=== PATIENT | female | born 1970 | race Caucasian/White ===

== ENCOUNTER 2018-10-13 08:18 | Day surgery (SDC) | payer BC ==
[~2018-10-13 08:18] MED LIST: CELECOXIB 100 MG CAPSULE PO ONE; FAMOTIDINE 20MG TABLET PO ONE; MECLIZINE 25 MG TABLET PO ONE; METOCLOPRAMIDE 10 MG TABLET PO ONE; SCOPOLAMINE 1 PATCH TDSY TD ONE; VANCOMYCIN 1GM/200ML PREMIX 1 GM/200 ML PIGGYBACK IVPB ONE
[2018-10-13] MEDS ORDERED: ROPIVACAINE HCL (NAROPIN) /PF 5MG/ML 20ML VIAL IV ONE (08:19)
[2018-10-13] MEDS ORDERED: 0.9 % SODIUM CHLORIDE 10 ML VIAL IVP ONE (08:19)
[2018-10-13] MEDS ORDERED: KETAMINE HCL 100MG/1ML VIAL INJ ONE (08:19)
[2018-10-13] MEDS ORDERED: FENTANYL PF 100MCG/2ML VIAL IV ONE (08:19)
[2018-10-13] MEDS ORDERED: MIDAZOLAM HCL 2MG/2ML VIAL IV ONE (08:19)
[2018-10-13] MEDS ORDERED: LIDOCAINE 2% MDV (20MG/ML) 20ML VIAL IV ONE (08:19)
[2018-10-13] MEDS ORDERED: ESMOLOL HCL 100 MG/10 ML ML IVP ONE (08:19)
[2018-10-13] MEDS ORDERED: LABETALOL HCL 5MG/ML, 20ML VIAL IV ONE (08:19)
[2018-10-13] MEDS ORDERED: DEXAMETHASONE 4 MG/ML 1ML VIAL IVP ONE (08:19)
[2018-10-13] MEDS ORDERED: HYDROMORPHONE HCL 2 MG/ML VIAL IV ONE (08:19)
[2018-10-13] MEDS ORDERED: PROPOFOL 10 MG/ML VIAL IV ONE (08:19)
[2018-10-13] MEDS ORDERED: TRANEXAMIC ACID 1,000 MG/10 ML ML IV ONE (08:19)
[2018-10-13] MEDS ORDERED: RINGERS SOLUTION,LACTATED 1,000 ML IV ONE ×2 (09:00→12:30)
[2018-10-13 10:05] LABS: ABO GROUP O; ANTIBODY SCREEN NEGATIVE (NEGATIVE); RH TYPE POSITIVE
[2018-10-13] MEDS ORDERED: BUPIVACAINE 0.5% W/EPI MPF 30 ML VIAL SQ ONE (11:35)
[2018-10-13] MEDS ORDERED: BISACODYL 10 MG SUPP RC PRN (12:38)
[2018-10-13] MEDS ORDERED: ONDANSETRON HCL IV 4 MG/2 ML VIAL IVP PRN (12:38)
[2018-10-13] MEDS ORDERED: AL HYDROX/MAG HYDROX 30ML UD PO PRN (12:38)
[2018-10-13] MEDS ORDERED: MAGNESIUM HYDROXIDE 30 ML UDC PO PRN (12:38)
[2018-10-13] MEDS ORDERED: HYDROCODONE/APAP 10/325 TABLET PO PRN (12:38)
[2018-10-13] MEDS ORDERED: ACETAMINOPHEN 325 MG TAB PO PRN (12:38)
[2018-10-13] MEDS ORDERED: ZOLPIDEM TARTRATE 5 MG TABLET PO PRN (12:38)
[2018-10-13] MEDS ORDERED: ACETAMINOPHEN W/ CODEINE 300MG/60MG TABLET PO PRN ×2 (12:38)
[2018-10-13] MEDS ORDERED: NALOXONE 0.4 MG/1 ML VIAL IVP PRN (12:38)
[2018-10-13] MEDS ORDERED: KETOROLAC 30 MG/ML VIAL IVP PRN ×2 (12:38)
[2018-10-13] MEDS ORDERED: DIPHENHYDRAMINE HCL 25 MG CAPSULE PO PRN (12:38)
[2018-10-13] MEDS ORDERED: HYDROMORPHONE HCL 2 MG/ML VIAL IM PRN (12:38)
[2018-10-13] MEDS ORDERED: TRAMADOL HCL 50 MG TABLET PO PRN (12:38)
[2018-10-13] MEDS ORDERED: KETOROLAC 30 MG/ML VIAL IVP ONE (13:11)
[2018-10-13] MEDS ORDERED: FUROSEMIDE 20 MG TABLET PO PRN (15:02)
[2018-10-13] MEDS ORDERED: POTASSIUM CHLORIDE 20 MEQ TABLET PO PRN (15:03)
--- NOTE | 2018-10-13 15:11 | Rehab Evaluation ---
Patient Information - Patient Information Diagnosis: OA L knee Ordered Treatment: OT Evaluate and Treat Status: Initial Evaluation Surgery: Yes (L TKA) Date of Surgery: 10/13/18 Past Medical/Surgical Hx: PAST MEDICAL/SURGICAL HISTORY Past Surgical History TEAR DUCT RECONSTUCTION LITHOTRIPSY BILAT RTC REPAIR FACSIOTOMY BILAT FEET C SECTION WITH TUBAL LIGATION 2007 BILAT CTR PMH - Respiratory Hx Respiratory Disorders Yes Hx Bronchitis Yes: 2 YRS AGO Hx Pneumonia Yes: 2 YRS AGO Hx Sleep Apnea Yes Hx of CPAP Yes PMH - Cardiovascular Hx Cardiovascular Disorders Yes Hx Abnormal EKG Yes Hx Edema Yes: KNEES AND ANKLES Hx Irregular Heartbeat Yes: A FIB SHORT LIVED CONVERTED ON ITS OWN 10 YRS AGO Exercise Tolerance Poor PMH - Neuro Hx Neurological Disorders No PMH - GI Hx Gastrointestinal Disorders Yes Hx Gastroesophageal Reflux Yes: ON MEDS WITH CONTROL PMH - Hx Genitourinary Disorders Yes Hx Age of Menopause 40 Hx Kidney Stones Yes: HX OF Comment: S/P TUBAL LIGATION PMH - Endocrine Hx Endocrine Disorders No PMH - Musculoskeletal Hx Musculoskeletal Disorders Yes Hx Arthritis Yes: KNEES AND SPINE PMH - Psych Hx Psychiatric Problems Yes Hx Anxiety Yes: OCC SITUATIONAL PMH - Hematology/Oncology Hx Hematology/Oncology No Disorders Premorbid Status: Detail (Prior to admit, Pt was independent with all ADLs and functional mobility. She lives with her significant other in a 2-story home, but plans to stay on the main floor at [place]. There are 3 steps to enter without a hand-rail. The bathroom is equipped with a tub/shower and no grab bars or shower chair - Pt reports her significant other will get a shower chair. She has a FWW.) Precautions: [place], Fall, Other (FWB) - Time With Patient Total Time Spent With Patient (Min): 20 (1 eval) Treatment Procedures: Detail (OT eval: low complexity) Subjective Information - Subjective Information Per Patient (Ok to see per STEPHAN Joshua. Pt agreeable to OT eval.) Objective Data - Pain Pain Present: Yes Pain Scale Used: Numeric (1 - 10) (4/10) - Mental Status Patient Orientation: Oriented x3 - Visual Perception Appears within normal limits for therapeutic activities - ROM Within normal limits (B UEs.) - Strength/Tone Other (Pt fatigued this date, will assess UE strength tmrw.) - Coordination Appears within normal limits for therapeutic activities - Bed Mobility Needs Assist (Supine to/from EOB with MAX assist of 2 and heavy use of overhead trapeze.) - Transfers Needs Assist (MOD assist of 2 for sit to/from stand at EOB at FWW. Pt quickly becomes lightheaded while standing and requires seated rest, declines further mobility. SpO2 >97% throughout.) - Balance Balance Sitting: Fair Balance Standing: Fair, Poor (Fair- with walker) - Sensation Intact - Gait Detail (Not appropriate at this time.) - ADL's/IADL's Detail (Pt too fatigued, lightheaded this date to attempt ADLs or fxl mobility, however applies cold washcloth to face with setup assist.) Therapy Assessment - Therapy Assessment Detail (Pt limited by fatigue and lightheadedness s/p L TKA. Would benefit from further IP OT to ensure safety and fxl independence prior to return home with spouse.) Patient Education - Patient Education Teaching Topic: Exercise/Activity Response: Return Demonstration, Reinforcement Needed Teaching Method: Discussion, Demonstration Teaching Recipient: Patient Barriers To Learning: Other (Fatigue) Problem List - Problem List Occupational Therapy Problem List: Detail (1. Decreased independence with LB dressing. 2. Decreased independence and tolerance for fxl mobility and TFs. 3. Decreased knowledge of home safety.) Goals - Goals Occupational Therapy Goals: 1. Pt will be MOD I with AE as needed for LB dressing. 2. Pt will be MOD I with use of FWW for toilet and tub/shower TFs. 3. Pt will verbalize knowledge of home safety. Prognosis - Prognosis Good Plan - Plan Occupational Therapy Plan: 1-2 visits to ensure safety and independence prior to return home with significant other.
--- NOTE | 2018-10-13 16:03 | Rehab Evaluation ---
Patient Information - Patient Information Diagnosis: OA L knee Ordered Treatment: PT Evaluate and Treat Status: Initial Evaluation Surgery: Yes (L TKA) Date of Surgery: 10/13/18 Past Medical/Surgical Hx: PAST MEDICAL/SURGICAL HISTORY Past Surgical History TEAR DUCT RECONSTUCTION LITHOTRIPSY BILAT RTC REPAIR FACSIOTOMY BILAT FEET C SECTION WITH TUBAL LIGATION 2007 BILAT CTR PMH - Respiratory Hx Respiratory Disorders Yes Hx Bronchitis Yes: 2 YRS AGO Hx Pneumonia Yes: 2 YRS AGO Hx Sleep Apnea Yes Hx of CPAP Yes PMH - Cardiovascular Hx Cardiovascular Disorders Yes Hx Abnormal EKG Yes Hx Edema Yes: KNEES AND ANKLES Hx Irregular Heartbeat Yes: A FIB SHORT LIVED CONVERTED ON ITS OWN 10 YRS AGO Exercise Tolerance Poor PMH - Neuro Hx Neurological Disorders No PMH - GI Hx Gastrointestinal Disorders Yes Hx Gastroesophageal Reflux Yes: ON MEDS WITH CONTROL PMH - Hx Genitourinary Disorders Yes Hx Age of Menopause 40 Hx Kidney Stones Yes: HX OF Comment: S/P TUBAL LIGATION PMH - Endocrine Hx Endocrine Disorders No PMH - Musculoskeletal Hx Musculoskeletal Disorders Yes Hx Arthritis Yes: KNEES AND SPINE PMH - Psych Hx Psychiatric Problems Yes Hx Anxiety Yes: OCC SITUATIONAL PMH - Hematology/Oncology Hx Hematology/Oncology No Disorders Premorbid Status: Detail (Prior to admit, Pt was independent with all ADLs and functional mobility. She lives with her significant other in a 2-story home, but plans to stay on the main floor at [place]. There are 3 steps to enter without a hand-rail. The bathroom is equipped with a tub/shower and no grab bars or shower chair - Pt reports her significant other will get a shower chair. She has a FWW.) Precautions: [place], Fall, Other (FWB) - Time With Patient Total Time Spent With Patient (Min): 30 Treatment Procedures: Detail (Patient seen bedside and having a hard time staying awake. Had to keep waking her up to get a history and then worked on knee ROM to loosen up knee before tried to sit up edge of bed. Patient had quite a bit of pain with ROM and knee very stiff yet. Supine to sit using trapeze and max assist of two to get to edge of bed then sat for several minutes to clear head. Became very dizzy with trying to stand with FWW with max assist of two so sat right back down. Sat again to clear head then max assist into bed. Able to scoot up in bed though with light assist. Left patient with O2 monitor( she's been having issues with O2 sats dropping) on ear and call light close, tray table close.) Subjective Information - Subjective Information Per Patient (Patient's having some issues with waking up since surgery and O2 s ats keep dropping per nurse but nurse felt we should try to get her moving. Patient willing. Says pain about 4/10.) Objective Data - Pain Pain Present: Yes Pain Scale Used: Numeric (1 - 10) (4/10) - Mental Status Patient Orientation: Oriented x3 - Visual Perception Appears within normal limits for therapeutic activities - ROM Within normal limits (except left knee 0 degrees extension to 45 degrees flexion) - Strength/Tone Within normal limits (except left knee 3-/5 hamstrings, quads 3/5, hip flexors 3-/5 also.) - Coordination Deficit (Patient having some difficulty waking up and not really coordinating issues with knee yet.) - Bed Mobility Needs Assist (Needs assist to do exercises and move supine to sit to stand, was able to push up in bed with min assist.) - Transfers Needs Assist (As mentioned above.) - Balance Balance Sitting: Good Balance Standing: Fair - Sensation Deficit (Numbness in leg yet: left knee) - Gait Detail (Not able to walk today- only able to stand and did not do well.) - Special Tests No Therapy Assessment - Therapy Assessment Detail (Patient having some issues with O2 sats and waking from surgery. Not able to do very much today.) Patient Education - Patient Education Teaching Topic: Equipment Use, Exercise/Activity Response: Return Demonstration Teaching Method: Discussion, Demonstration Teaching Recipient: Patient Barriers To Learning: None Problem List - Problem List Physical Therapy Problem List: Detail (1. Decreased mobility yet 2. Decreased functional gait yet. 3. Have not tried stairs so will need to do that before discharge) Goals - Goals Physical Therapy Goals: Patient will be more functional with mobility and be able to walk with FWW at least 50 feet. Patient will be safe ambulating on stairs to be able to get into house. Prognosis - Prognosis Good (Should do better in am and be ready to progress so can go home.) Plan - Plan Physical Therapy Plan: Continue PT tomorrow am for exercises, gait and stairs so can go home tomorrow. May need to be seen in pm if cannot do stairs in am.
[2018-10-13] MEDS: POTASSIUM CHLORIDE/D5-0.9%NACL 20 MEQ/1,000 ML BAG IV SCH (17:56)
[2018-10-13] MEDS: HYDROCODONE/APAP 10/325 TABLET PO PRN (20:13)
[2018-10-13] MEDS: DOCUSATE SODIUM 100 MG CAPSULE PO SCH (21:26)
[2018-10-13] MEDS: VANCOMYCIN 1GM/200ML PREMIX 1 GM/200 ML PIGGYBACK IVPB SCH (21:28)
[2018-10-13] MEDS ORDERED: PANTOPRAZOLE SODIUM 40 MG TABLET PO SCH (22:00)
[2018-10-14] MEDS: POTASSIUM CHLORIDE/D5-0.9%NACL 20 MEQ/1,000 ML BAG IV SCH ×3 (02:33→15:46)
[2018-10-14 07:00] LABS: HEMATOCRIT 35.3 % (35.0-47.0); HEMOGLOBIN 10.8 gm/dl (11.6-16.0)
[2018-10-14 07:17] LABS: BLOOD UREA NITROGEN 6 mg/dL (6-20); CREATININE 0.6 mg/dL (0.5-0.9); EST GLOMERULAR FILTRATION RATE > 60 mL/min; GLUCOSE,RANDOM 140 mg/dL (74-109)
[2018-10-14] MEDS: HYDROCODONE/APAP 10/325 TABLET PO PRN ×3 (07:20→15:49)
[2018-10-14] MEDS ORDERED: RIVAROXABAN 10 MG TABLET PO SCH (10:00)
[2018-10-14] MEDS ORDERED: FERROUS SULFATE 325 MG TAB PO SCH (10:00)
[2018-10-14] MEDS: DOCUSATE SODIUM 100 MG CAPSULE PO SCH (10:30)
[2018-10-14] MEDS: VANCOMYCIN 1GM/200ML PREMIX 1 GM/200 ML PIGGYBACK IVPB SCH (10:31)
[2018-10-14 10:39] LABS: URINE APPEARANCE CLEAR; URINE BILIRUBIN NEGATIVE (NEGATIVE); URINE BLOOD MODERATE (NEGATIVE); URINE COLOR YELLOW; URINE GLUCOSE (UA) NEGATIVE (NEGATIVE); URINE KETONE NEGATIVE (NEGATIVE); URINE LEUKOCYTE ESTERASE NEGATIVE (NEGATIVE); URINE NITRITE NEGATIVE (NEGATIVE); URINE PROTEIN NEGATIVE (NEGATIVE); URINE UROBILINOGEN 0.2 E.U./dL (0.20 - 1.00)
[2018-10-14 11:00] LABS: URINE BACTERIA FEW; URINE WBC 0 - 2 (0-2/hpf)
--- NOTE | 2018-10-14 11:14 | Occupational Therapy Tx Note ---
Occupational Therapy Tx Note - Treatment Note Tolerated: Good Total Time Spent With Patient: 27 (1 ADL) Occupational Therapy Treatment Note: Detail (S: Pt supine upon therapist arrival, no longer on O2, reports 4/10 pain at rest but not due yet for pain meds, also feels she may be passing a kidney stone. O: Supine to EOB with MIN assist as Pt unable to lift L leg, OT educated Pt on modified techniques, including crossing R leg under, leg raise drill operator, or similar tools. Pt doffs/dons LB dress, underwear, pants, socks with occasional light MIN assist to pull clothing under foot, Pt demos independence with largely increased time and reports she will either take the time at home or her kids can assist as needed. EOB to/from std. toilet with FWW at MOD I level, OT educated Pt on modified technique for sit-stands to decreased pain and increase independence. Pt reports she has a sturdy sink to support her during toilet TFs at home. OT educated Pt car and tub/shower TFs as well as home safety, Pt verbalizes understanding. A: Pt slow and painful, however demos and verbalizes good safety and independence with ADLs and functional mobility, reports her kids will assist as needed at home.) Occupational Therapy Problem List: Detail (1. Decreased independence with LB dressing. 2. Decreased independence and tolerance for fxl mobility and TFs. 3. Decreased knowledge of home safety.) Occupational Therapy Goals: ALL GOALS MET: 1. Pt will be MOD I with AE as needed for LB dressing. 2. Pt will be MOD I with use of FWW for toilet and tub/shower TFs. 3. Pt will verbalize knowledge of home safety. Prognosis: Good Occupational Therapy Plan: Recommend DC home with spouse and kids when medically ready. Pt has met all OT goals, no further skilled IP OT needs identified, DC OT services. Thank you for this referral.
--- NOTE | 2018-10-14 11:44 | Physical Therapy Tx Note ---
Physical Therapy Tx Note - Treatment Note Tolerated: Good (Patient feeling a little ill today: may have kidney stone and having some difficulty with urination. Patient able to move sit to stand and ambulate with FWW but hands get a little numb with weightbearing on them with walker.) Total Time Spent With Patient: 30 Physical Therapy Tx Note: Detail (Patient seen in room. OT has already been in and patient dressed and has been up several times this am to bathroom. Sit to stand with FWW and ambulated about 50 feet with CGA in [place], WBAT. Notes pressure on hands making hands numb. Sat in wheelchair and pushed down to stairs and patient able to ambulate down three steps then back up three steps using walker folded and rail with good technique, min assist for safety. Sat in wheelchair and pushed back to room then ambulated about 10 feet around bed to sit EOB then into bed with very little assist left LE. Reviewed exercises for knee: heel slides, SLR and quad sets, ankle exercises. Replaced cold pack on knee and tray table, call light close.) Physical Therapy Problem List: Detail (1. Decreased mobility yet 2. Decreased functional gait yet. 3. Have not tried stairs so will need to do that before discharge) Physical Therapy Goals: Patient will be more functional with mobility and be able to walk with FWW at least 50 feet. Patient will be safe ambulating on stairs to be able to get into house. Prognosis: Good (Patient did pretty well with gait and exercises today and has passed goals of PT to discharge from PT.) Physical Therapy Plan: Patient doing well this am and ready for discharge from PT. Will have home therapy.
--- NOTE | 2018-10-14 12:12 | Consult ---
Consult Order Detail - Reason for Consult Consult Date: 10/14/18 Consult Order Detail: Pt c/o left flank pain that changed to left groin pain "like I had when I passed my kidney stones" -denies gross blood in urine but had some difficulty starting the stream - Chief Complaint Chief Complaint: LEFT KNEE PRIMARY OSTEOARTHRITIS HPI Consult - Gastrointestinal Complaint: Flank pain Location: R Flank Migration to: Other (right groin) Severity: Moderate Quality: Sharp Consistency: Intermittent Improves With: Medication Context: Other (prev kidney stones) Associated Symptoms: Denies other symptoms ROS - Genitourinary Genitourinary: Denies: Discharge, Dyspareunia, Dysuria, Frequency, Hematuria, Incontinence Past Medical History - SOCIAL HISTORY Smoking Status: Never smoker Alcohol Use: None Drug Use: None - RESPIRATORY Hx Respiratory Disorders: Yes Hx Bronchitis: Yes (2 YRS AGO) Hx Pneumonia: Yes (2 YRS AGO) Hx Sleep Apnea: Yes Hx of CPAP: Yes - CARDIOVASCULAR Hx Cardio Disorders: Yes Hx Abnormal EKG: Yes Hx Edema: Yes (KNEES AND ANKLES) Hx Irregular Heartbeat: Yes (A FIB SHORT LIVED CONVERTED ON ITS OWN 10 YRS AGO) - NEURO Hx Neuro Disorders: No - GI Hx GI Disorders: Yes Hx Reflux: Yes (ON MEDS WITH CONTROL) - Hx Genitourinary Disorders: Yes Hx Kidney Stones: Yes (HX OF) Comment:: S/P TUBAL LIGATION - ENDOCRINE Hx Endocrine Disorders: No - MUSCULOSKELETAL Hx Musculoskeletal Disorders: Yes Hx Arthritis: Yes (KNEES AND SPINE) - PSYCH Hx Psych Problems: Yes Hx Anxiety: Yes (OCC SITUATIONAL) - HEMATOLOGY/ONCOLOGY Hx Hematology/Oncology Disorders: No Family Medical History Any Significant Family History?: No Hx Cancer: Mother *Cancer Comment: MOM BREAST Hx Diabetes: Father Hx Heart Disease: Father H&P Meds - Home Medications and Allergies Allergies Allergy/AdvReac Type Severity Reaction Status Date / Time cephalexin [From Keflex] Allergy HIVES Verified 09/23/18 13:23 ciprofloxacin [From Cipro] Allergy HIVES Verified 09/23/18 13:23 erythromycin base Allergy HIVES Verified 09/23/18 13:23 gentamicin Allergy HIVES Verified 09/23/18 13:23 Penicillins Allergy HIVES Verified 09/23/18 13:23 Physical Exam - Vital Signs Vital Signs: Vital Signs - Last 24 Hrs Temp Pulse Pulse Resp BP Pulse Ox 10/14/18 08:00 98.1 F 103 H 18 142/86 97 10/14/18 05:00 97.7 F 98 H 18 137/80 95 10/14/18 01:00 98.1 F 96 H 20 144/90 97 10/13/18 21:00 101 H 18 10/13/18 20:12 97.5 F L 101 H 18 122/70 95 10/13/18 17:15 95 H 18 143/70 88 L 10/13/18 16:20 98.7 F 95 H 18 141/88 89 L 10/13/18 15:50 98 H 18 136/79 93 L 10/13/18 14:20 95 H 18 139/85 91 L 10/13/18 14:05 91 H 18 138/86 90 L 10/13/18 13:50 93 H 18 129/90 88 L 10/13/18 13:35 93 H 18 142/87 88 L 10/13/18 13:25 83 16 141/89 95 10/13/18 13:15 85 16 143/88 98 10/13/18 13:08 97.5 F L 88 20 136/85 96 10/13/18 13:03 97.5 F L 92 H 18 134/85 97 10/13/18 12:56 94 H 24 137/85 97 - General General Appearance: Alert, Oriented x3, Cooperative, No acute distress - Head Head exam: Atraumatic, Normocephalic - Eye Eye exam: Normal appearance - ENT ENT exam: Normal exam Ear exam: Normal external inspection Mouth exam: Normal external inspection - Neck Neck exam: Normal inspection - Respiratory Respiratory exam: Normal lung sounds bilaterally - Cardiovascular Cardiovascular Exam: Regular rate, Normal rhythm, Normal heart sounds - Rectal Rectal exam: Deferred - exam: Deferred - Back Back exam: Denies: CVA tenderness (R), CVA tenderness (L) - Neurological Neurological exam: Abnormal gait (recent left TKA) Results - Labs Result Diagrams: 10/14/18 06:33 10/14/18 06:33 Labs Last 24 Hours: Laboratory Results - last 24 hr 10/14/18 10/14/18 10/14/18 06:33 06:33 10:00 Hgb 10.8 L Hct 35.3 Sodium 138 Potassium 3.8 Chloride 102 Carbon Dioxide 24.0 Anion Gap 12.0 BUN 6 Creatinine 0.6 Estimated GFR > 60 Random Glucose 140 H Calcium 8.4 L Urine Color Yellow Urine Appearance Clear Urine pH 6.5 Ur Specific [place] <= 1.005 Urine Protein Negative Urine Glucose (UA) Negative Urine Ketones Negative Urine Blood Moderate Urine Nitrite Negative Urine Bilirubin Negative Urine Urobilinogen 0.2 Ur Leukocyte Esterase Negative Urine RBC 7 - 10 Urine WBC 0 - 2 U Non-Squamous Epi Cells 7 - 10 Urine Bacteria Few Assessment and Plan - Assessment and Plan (1) Hematuria Current Visit: Yes Status: Acute Base Code: R31.9 - HEMATURIA, UNSPECIFIED Comment: 10/14/18 -UA shows contaminated sample but positive for blood -CT abd/pel stone protocol ordered -pt has h/o urinary STENTx1, lithotripsy x2 Dr Givens urologist (2) Ovarian cyst Current Visit: Yes Status: Acute Base Code: N83.209 - UNSPECIFIED OVARIAN CYST, UNSPECIFIED SIDE Comment: -CT reveals 2.5cm cyst right ovary -pt has an appt with [facility] Friday10/23/[address] Rachel
--- NOTE | 2018-10-15 10:40 | CT SCAN REPORT ---
EXAM: CT OF THE ABDOMEN AND PELVIS WITHOUT CONTRAST HISTORY: RIGHT FLANK PAIN. HEMATURIA. DYSURIA. TECHNIQUE: Thin collimation helical CT examination of the abdomen and pelvis was performed without oral or intravenous contrast administration. Lack of oral and IV contrast utilization limits evaluation of the bowel and solid viscera respectively. FINDINGS: There is minor dependent atelectasis in each lung base. Minor linear scarring versus atelectasis is also noted within the inferior lingula. No pleural or pericardial effusion. The heart is not enlarged. A small sliding type hiatal hernia is present. The liver, spleen, pancreas, and adrenal glands are normal in appearance. No calcified gallstone, gallbladder wall thickening, or pericholecystic fluid. There is a negative sonographic Garg's sign. The kidneys are normal in size, position and are smoothly marginated. Minimal bilateral perinephric fat stranding. There are a couple tiny nonobstructing calculi within the lower pole of the left kidney with the largest measuring 2.7 mm. No other nephrolithiasis nor renal mass identified. the renal collecting systems are not dilated. No calcification noted along the course of either ureter. No intrinsic urinary bladder abnormality. There is a 2.3 x 2.5 cm low density structure within the right ovary likely a functional ovarian cyst. No other pelvic mass, lymphadenopathy, or free pelvic fluid. No gross bowel dilatation nor bowel wall thickening. The appendix is visualized and normal in appearance. It is located in the region of the pericolic gutter. No free intraperitoneal air. There is a small fat filled lobulated ventral wall hernia appearing uncomplicated. This measures 2.5 x 1.4 x 2.2 cm. The vasculature is normal in caliber. No intraabdominal nor retroperitoneal lymphadenopathy. No lytic or blastic bone lesion. Mild degenerative changes are present within the lower lumbar spine. IMPRESSION: 1. NO NEPHROLITHIASIS NOR OBSTRUCTIVE UROPATHY. 2. PROBABLE DOMINANT FOLLICLE/FUNCTIONAL OVARIAN CYST WITHIN THE RIGHT OVARY MEASURING 2.5 CM IN MAXIMUM DIAMETER. 3. NORMAL APPENDIX. 4. SMALL UNCOMPLICATED FAT FILLED UMBILICAL HERNIA. JOB NUMBER: [id number] [facility]
--- NOTE | 2018-10-15 15:40 | Operative Note ---
DATE OF SURGERY: 10/13/2018 PREOPERATIVE DIAGNOSIS: Endstage arthrosis of the left knee. POSTOPERATIVE DIAGNOSIS: Endstage arthrosis of the left knee. OPERATION: Cemented left total knee arthroplasty using [employer] Beatrice II components, with a size 4 Oxinium femur, a size 3 stem tibia baseplate, a 9 mm lipped tibial insert. The patella was not resurfaced because it was too thin and she was morbidly obese. SURGEON: Al Wallis M.D. ANESTHESIA: Spinal. PREPARATION: Chloraprep. INDIVIDUAL CONSIDERATIONS: This lady was morbidly obese with a body mass index of about 50. This made dissection and exposure much more difficult. She had a very thick soft tissue envelope approaching 3 to 4 inches superiorly. This made surgery longer and more difficult to do. PROCEDURE: The patient was taken to the operating room and placed supine on the operating room table. She had a successful induction with spinal anesthetic. Her left lower extremity was prepped and draped in the usual fashion. The limb was elevated, the tourniquet was inflated to 250 mmHg. The patient had a midline approach to the knee. Sharp dissection carried down through the skin and above the subcutaneous tissue, small veins were coagulated with the Bovie. A medial arthrotomy was performed, the patella was everted, the knee was flexed. She had exposed bone medially and some areas laterally and in a notch, the patella was marginal. The ACL was sacrificed. Provisional anterior meniscectomies were performed, the capsule was released from the medial proximal tibia. The fat pad was also resected. An initial femoral mapping pilot hole was then made freehand. The intramedullary femoral cutting jig was placed. It was cut in 7.0 degrees of valgus and adjusted for rotation and secured with pins for a 10 mm resection. The initial transverse cut was then made. A skid guide was placed in the anterior and posterior mapping pilot holes. It was found that a size 4 fit, but I had to translate it anteriorly 2 mm. The anterior and posterior cuts were made, osteophytes were removed, and a size 4 trial was placed and found to fit well. The tibia was brought forward. The remainder of the meniscal remnants were removed with a Bovie. The extraarticular tibial cutting jig was placed. It was cut in neutral with a 3 degree AP slope. Care was taken to adjust for rotation and I cut the tibia, keyed 9 mm off the high lateral side. After cutting the tibia, medial osteophytes were removed and I was able to fit a size 3. A size 3 was adjusted for rotation and secured with pins. With a size 4 femoral trial and a 9 mm lipped trial, there was excellent motion stability, ligamentous balance and rotation alignment were thought to be normal. The femoral mapping pilot holes were impacted and the flange tibial stamp was impacted and the trial components were removed. I then thoroughly irrigated out the knee to remove any visual or palpable debris. The tourniquet was let down briefly to get bleeders posteriorly and placed it back up again. This lady was morbidly obese and unfortunately she only had a 17 to 18 mm thick patella. If I had attempted to cut this, it would have resulted in a very thin patella and highly likely she would have fractured it, so I elected not to resurface it. After trimming osteophytes and again thoroughly irrigating, the bony surfaces were dried. The size 3 stem tibial base plate was cemented into place, followed by impaction of the 9 mm lipped tibial insert, followed by cementing in the size 4 Oxinium femur. The implant surfaces were compressed, excess cement was removed, and after the cement had set, there was excellent motion stability, ligamentous balance and rotation alignment, and patellofemoral tracking were normal after a very limited lateral release. After irrigation, the tourniquet was let down, hemostasis was obtained with a Bovie. The capsule was then closed with a running #2 Quill, prior to this I did infiltrate the skin, subq, and periosteum with 30 mL of 0.5% Marcaine with epinephrine. The subq was closed with multiple layers of running 0 Quill, the skin was closed with ashley. The patient did receive 1 gram of tranexamic acid IV preoperatively. I mixed 1 gram of tranexamic acid with 30 mL of saline, injected it into the knee through a sterile 18 gauge needle and a sterile bulky compressive ALEC-type dressing was applied. The patient tolerated the procedures well. The needle and sponge counts were correct. Estimated blood loss was minimal. She was taken back to recovery in good condition. There were no complications. VLADIMIR
== END 2018-10-14 16:00 | disposition home or self-care (01) ==
LOC: SUR 08:18 → MEDSURG 13:50 → SUR 10-14 16:00
PROVIDERS: ATTEND Orthopaedic Surgery
DX: M17.12 Unilateral primary osteoarthritis, left knee (principal); R60.9 Edema, unspecified; K21.9 Gastro-esophageal reflux disease without esophagitis; G47.33 Obstructive sleep apnea (adult) (pediatric); Z68.43 Body mass index [BMI] 50.0-59.9, adult
CPT/HCPCS: 74176; 76942; 80048; 81001; 85014; 85018; 86850; 86900; 86901; C1776; J1885; J2405; J3370; J3480; J3490; J7120